=== PATIENT | female | born 1990 | race Caucasian/White ===

== ENCOUNTER 2019-11-11 07:28 | Day surgery (SDC) | payer OTHER, SELFPAY ==
[~2019-11-11] VITALS: Ht 165.1 cm; Wt 97.1 kg
[2019-11-11] MEDS ORDERED: diphenhydrAMINE 50 MG/ML VIAL ONE (09:27)
[2019-11-11] MEDS ORDERED: LIDOCAINE VISCOUS 2% 20 ML UDC ONE (09:28)
[2019-11-11] MEDS ORDERED: fentaNYL citrate 0.05 MG/ML VIAL ONE (09:28)
[2019-11-11] MEDS ORDERED: MIDAZOLAM 2 MG/2 ML VIAL ONE (09:28)
[2019-11-11] MEDS ORDERED: fentaNYL citrate 0.05 MG/ML VIAL IVP ONE (10:05)
[2019-11-11] MEDS ORDERED: MIDAZOLAM 2 MG/2 ML VIAL IVP ONE (10:05)
== END 2019-11-11 10:33 | disposition home or self-care (01) ==
LOC: MDS 07:28 → MFCC 07:28 → MDS 10:33
PROVIDERS: ATTEND Internal Medicine Gastroenterology
DX: R10.9 Unspecified abdominal pain (principal); K21.9 Gastro-esophageal reflux disease without esophagitis; K44.9 Diaphragmatic hernia without obstruction or gangrene; Z11.59 Encounter for screening for other viral diseases; F17.200 Nicotine dependence, unspecified, uncomplicated; Z90.89 Acquired absence of other organs; Z98.890 Other specified postprocedural states; Z79.899 Other long term (current) drug therapy
CPT/HCPCS: 43239; 81025; J2250; J3010; U0003; J1200